=== PATIENT | female | born 1965 | race Caucasian/White ===

== ENCOUNTER 2017-05-14 07:05 | Emergency (ER) | payer OTHER, MEDICAID ==
[2017-05-14] MEDS ORDERED: KETOROLAC 30 MG INJ IM (08:05)
[2017-05-14] MEDS ORDERED: ACETAMINOPHEN 500 MG TAB PO (08:05)
== END 2017-05-14 11:20 | disposition home or self-care (01) ==
LOC: FTE 07:05
DX: R50.9 Fever, unspecified (principal); R05 Cough; R09.81 Nasal congestion; J02.9 Acute pharyngitis, unspecified
CPT/HCPCS: 99283; Z7502

== ENCOUNTER 2017-09-03 07:20 | Emergency (ER) | payer OTHER ==
[2017-09-03] MEDS: HYDROCODONE/APAP (5/325) TAB PO (09:44)
[2017-09-03] MEDS: KETOROLAC 60 MG INJ IM (09:45)
== END 2017-09-03 10:10 | disposition home or self-care (01) ==
LOC: FTE 07:20
DX: M25.511 Pain in right shoulder (principal)
CPT/HCPCS: 73030; 73030-RT; 81025; 96372; 99284-25

== ENCOUNTER 2018-01-01 18:38 | Emergency (ER) | payer OTHER ==
[2018-01-01 20:27] LABS: ADD MAN DIFF? NO
[2018-01-01 20:29] LABS: WHITE BLOOD COUNT 10.3 10^3/ul (4.8-10.8)
[2018-01-01 20:29] LABS: BASOPHILS % 0.3 % (0.0-2.0); EOSINOPHILS # 0.1 10^3/ul (0.0-0.5); EOSINOPHILS % 1.1 % (0.0-7.0); HEMATOCRIT 35.5 % (37.0-47.0); HEMOGLOBIN 11.2 g/dl (12.0-16.0); LYMPHOCYTES # 3.1 10^3/ul (0.8-2.9); LYMPHOCYTES % 30.4 % (15.0-51.0); MEAN CORPUSCULAR HEMOGLOBIN 26.4 pg (29.0-33.0); MEAN CORPUSCULAR HGB CONC 31.5 g/dl (32.0-37.0); MEAN CORPUSCULAR VOLUME 83.5 fl (82.0-101.0); MEAN PLATELET VOLUME 9.5 fl (7.4-10.4); MONOCYTE # 0.7 10^3/ul (0.3-0.9); MONOCYTES % 6.7 % (0.0-11.0); NEUTROPHIL # 6.3 10^3/ul (1.6-7.5); NEUTROPHILS % 61.3 % (39.0-77.0); PLATELET COUNT 351 10^3/UL (140-415); RED BLOOD COUNT 4.25 10^6/ul (4.20-5.40); RED CELL DISTRIBUTION WIDTH 19.5 % (11.5-14.5)
[2018-01-01 20:33] LABS: ADD UMIC YES; UR ASCORBIC ACID NEGATIVE (NEGATIVE); UR BILIRUBIN (Dip) NEGATIVE (NEGATIVE); UR BLOOD (Dip) 3+ mg/dL (NEGATIVE); UR CLARITY SLIGHTLY CLOUDY (CLEAR); UR COLOR YELLOW (YELLOW); UR GLUCOSE (Dip) NEGATIVE (NEGATIVE); UR KETONES (Dip) NEGATIVE (NEGATIVE); UR LEUKOCYTE ESTERASE (Dip) TRACE Leu/ul (NEGATIVE); UR MUCUS FEW /HPF (NONE SEEN); UR NITRITE (Dip) NEGATIVE (NEGATIVE); UR RBC 5 /HPF (0-5); UR SPECIFIC GRAVITY (Dip) 1.012 (1.003-1.030); UR SQUAMOUS EPITHELIAL CELL FEW /HPF (FEW); UR TOTAL PROTEIN (Dip) NEGATIVE (NEGATIVE); UR UROBILINOGEN (Dip) NEGATIVE (NEGATIVE); UR WBC 2 /HPF (0-5)
[2018-01-01] MEDS: KETOROLAC 15 MG INJ IV (20:35)
[2018-01-01] MEDS: SOD CHLORIDE 0.9% 1,000 ML IV (20:35)
[2018-01-01 20:41] LABS: ALANINE AMINOTRANSFERASE 20 IU/L (13-69); ALBUMIN 4.4 g/dl (3.3-4.9); ALBUMIN/GLOBULIN RATIO 1.15; ALKALINE PHOSPHATASE 78 IU/L (42-121); ANION GAP 14 (8-16); ASPARTATE AMINO TRANSFERASE 23 IU/L (15-46); BILIRUBIN,INDIRECT 0.1 mg/dl (0-1.1); BILIRUBIN,TOTAL 0.1 mg/dl (0.2-1.3); BLOOD UREA NITROGEN 14 mg/dl (7-20); CALCIUM 9.5 mg/dl (8.4-10.2); CARBON DIOXIDE 25 mmol/L (21-31); CHLORIDE 104 mmol/L (97-110); CREATININE 0.55 mg/dl (0.44-1.00); GLUCOSE 90 mg/dl (70-220); LIPASE 77 U/L (23-300); POTASSIUM 4.1 mmol/L (3.5-5.1); SODIUM 139 mmol/L (135-144); TOTAL PROTEIN 8.2 g/dl (6.1-8.1)
== END 2018-01-01 23:32 | disposition home or self-care (01) ==
LOC: E/R 18:38
DX: N83.202 Unspecified ovarian cyst, left side (principal)
CPT/HCPCS: 36415; 76830; 76856; 80053; 81001; 83690; 85025; 96374; 99285-25

== ENCOUNTER 2018-07-11 09:04 | Day surgery (SDC) | payer OTHER ==
[2018-07-11] MEDS ORDERED: LIDOCAINE 2% (SDV) 5 ML INJ (10:47)
[2018-07-11] MEDS ORDERED: PROPOFOL 80 ML (10:47)
== END 2018-07-11 12:23 | disposition home or self-care (01) ==
LOC: GIL 09:04
DX: Z12.11 Encounter for screening for malignant neoplasm of colon (principal); K29.50 Unspecified chronic gastritis without bleeding; K64.1 Second degree hemorrhoids
CPT/HCPCS: 43239; 88305; 88312

== ENCOUNTER → 2018-08-27 | Outpatient (CLI) | payer OTHER | END | disposition home or self-care (01) | LOC: HKI 09:19 | DX: M25.562 Pain in left knee (principal); M79.672 Pain in left foot; M72.2 Plantar fascial fibromatosis | CPT/HCPCS: 73564 ==

== ENCOUNTER → 2018-10-04 | Outpatient (CLI) | payer OTHER | END | disposition home or self-care (01) | LOC: HKI 15:35 | DX: S83.232D Complex tear of medial meniscus, current injury, left knee, subsequent encounter (principal); X58.XXXD Exposure to other specified factors, subsequent encounter | CPT/HCPCS: 20610 ==